=== PATIENT | male | born 1950 | race Caucasian/White ===

== ENCOUNTER 2021-05-03 16:05 | Emergency (ER) | payer OTHER, MEDICARE, SELFPAY ==
--- NOTE | ~2021-05-03 | XR_ITS ---
XR elbow RT min 3V DATE: 05/03/2021 16:37 INDICATION: Pain and swelling, erythema and posterior elbow for 3 days. No injury. TECHNIQUE: 4 views COMPARISON: None FINDINGS: There is soft tissue swelling at the dorsum of the elbow overlying a prominent olecranon pr ocess spur. There is osteoarthritic change the elbow joint. There is some chronic ossicles along the medial aspec t of the distal humerus and proximal ulna. No fracture or dislocation or joint effusion, periosteal reaction or bone destruction. IMPRESSION: Prominent olecranon process spur Dorsal soft tissue swelling suggesting olecranon bursitis Osteoarthritis Reviewed, dictated and finalized at location A.
[2021-05-03 16:13] VITALS: BP 146/63; PULSE 60; RESP 16; TEMP 36.5; O2SAT 100
--- NOTE | 2021-05-03 16:19 | ED.UPPEXIN ---
HPI - Extremity Injury (Upper) General Chief Complaint: Extremity Injury, Upper Stated Complaint: rt elbow swelling/pain Time Seen by Provider: 05/03/21 16:19 Source: patient, RN notes reviewed and old records reviewed Mode of arrival: ambulatory Limitations: no limitations History of Present Illness HPI narrative: 70 year old male who presents to [facility] care with complaints of 3 days of swelling, redness and pain to the right elbow olecranon area with warmth noted with increased pain over the past day. Patient states that he has noted 2 small scabbed areas on his right elbow and wonders if he might of gotten bit by something prior to start of pain swelling and redness of his right elbow. Patient states that he walks his dogs daily at [email or web address] and denies any known injury to his right elbow. Patient does state history of past weight lifting years ago. MD complaint: injury to: right and elbow Other Extremity Injury: Right: elbow Related Data Home Medications Medication Instructions Recorded Confirmed metoprolol succinate 50 mg 50 mg PO DAILY 08/19/19 04/13/20 tablet,extended release 24 hr aspirin 81 mg tablet,delayed 81 mg PO DAILY 04/13/20 04/13/20 release Allergies Allergy/AdvReac Type Severity Reaction Status Date / Time No Known Allergies Allergy Verified 04/13/20 11:20 Review of Systems Review of Systems: CONSTITUTIONAL: Denies fever, chills, or sweats. EYES: Denies visual changes, redness, or discharge. ENT: Denies rhinorrhea, congestion, sore throat, or otalgia. CARDIOVASCULAR: Denies chest pain, palpitations, or edema. RESPIRATORY: Denies cough or dyspnea. GASTROINTESTINAL: Denies abdominal pain, nausea, vomiting, or diarrhea. GENITOURINARY: Denies dysuria or hematuria. SKIN: Denies rash or itching. two small scabbed areas noted on right elbow, no drainage or induration MUSCULOSKELETAL: Denies back pain,positive for right elbow pain redness swelling and warmth, myalgia. NEUROLOGIC: Denies headache, numbness, or weakness. PSYCHIATRIC: Denies anxiety or depression. All systems reviewed & are unremarkable except as noted in HPI and below PMFSH Past Medical History Medical History (Updated 05/03/21 @ 17:42 by Nurys Aguiar NP) Chronic sinusitis, unspecified Diastasis of rectus abdominis Essential (primary) hypertension Mixed hyperlipidemia Obesity Skin cancer, upper extremity Surgical History Surgical History (Updated 05/03/21 @ 17:40 by Nurys Aguiar NP) History of open heart surgery History of repair of left rotator cuff History of repair of right rotator cuff Family History Family History (Updated 05/03/21 @ 17:41 by Nurys Aguiar NP) Mother Family history of cardiovascular disease Skin cancer Father Cerebrovascular accident Heart disease Skin cancer Grandparent Heart disease Other Family history of elevated blood lipids Social History Social History (Updated 05/03/21 @ 17:40 by Nurys Aguiar NP) Smoking status: Never smoker Second hand tobacco smoke exposure: No Alcohol intake: current Substance use: never Living arrangements: with family Occupation/Education: retired Gender identity (if verbalized by the patient): Male Comments At time of signature, agree with nursing past medical, surgical, social and family history. There is no relevant family history pertinent to the presenting complaint Exam Narrative: GENERAL: Well-appearing, well-nourished, and in no acute distress. HEAD: Normocephalic, atraumatic. EYES: PERRLA and EOMI. ENT: Nares clear, no rhinorrhea or epistaxis. Mucous membranes moist. NECK: Supple.no lymphadenopathy CHEST: Clear to auscultation. No respiratory distress.SAO2 100% on room air HEART: Regular rate and rhythm. No murmur heard. Normal peripheral pulses. ABDOMEN: Soft, nontender, nondistended, normal active bowel sounds. EXTREMITIES: Normal range of motion, edema redness, pain and warmth to right elbow
== END 2021-05-03 17:19 | disposition home or self-care (01) ==
PROVIDERS: Emergency Provider Registered Nurse; PCP Family Medicine
DX: M77.8 Other enthesopathies, not elsewhere classified (principal); M70.21 Olecranon bursitis, right elbow; I10 Essential (primary) hypertension; E78.2 Mixed hyperlipidemia; E66.9 Obesity, unspecified; Z68.31 Body mass index [BMI] 31.0-31.9, adult; Z85.828 Personal history of other malignant neoplasm of skin
CPT/HCPCS: 73080; 99213; G0463

== ENCOUNTER 2022-09-26 01:21 | Day surgery (SDC) | payer MEDICARE, OTHER, SELFPAY ==
[2022-09-13 15:42] VITALS: BMI 32.5
[2022-09-26 07:59] VITALS: BP 132/66; PULSE 71; RESP 18; TEMP 36.6; O2SAT 98
[2022-09-26] MEDS: LACTATED RINGERS 1,000 ML 150 ML IV CONT (08:07)
--- NOTE | 2022-09-26 08:14 | WPDANESEPPF ---
Anes - Initial Pre Proc Eval Procedure: Operation Date: 09/26/22 09:00 Proposed Procedures p Screening Colonoscopy - Flo Venegas MD Date/Time: 09/26/22 08:14 Surgeon: Flo Venegas MD Pre Op Diagnosis: neoplasm screening Patient Data Age: 71 Gender: M Height: 1.75 m Weight: 97.9 kg Last Vital Signs Temp 36.6 C 09/26/22 07:59 Pulse 71 09/26/22 07:59 Resp 18 09/26/22 07:59 BP 132/66 09/26/22 07:59 Pulse Ox 98 09/26/22 07:59 O2 Del Method Room Air 09/26/22 07:59 Allergies Allergy/AdvReac Type Severity Reaction Status Date / Time No Known Allergies Allergy Verified 09/26/22 07:56 Home Medications Medication Instructions Recorded Confirmed Type metoprolol succinate 50 mg 50 mg PO DAILY 08/19/19 09/13/22 History tablet,extended release 24 hr aspirin 81 mg tablet,delayed 81 mg PO DAILY 04/13/20 09/13/22 History release atorvastatin 40 mg tablet 40 mg PO DAILY #90 tabs 04/04/22 09/13/22 Rx ezetimibe 10 mg tablet (Zetia) 10 mg PO DAILY #90 tabs 07/25/22 09/13/22 Rx Adults Multivitamin 1 tab-cap PO DAILY 09/13/22 09/13/22 History coQ10 (ubiquinol) 200 mg capsule 200 mg PO Q12H 09/13/22 09/13/22 History glucosamine sulf dipotassium Cl 2 tablet PO DAILY 09/13/22 09/13/22 History 750 mg-chondroitin sulf 600 mg tablet (Glucosamine-Chondroitin 3X Triple Strength) omega 7-tgb-bbl-fish oil 1,000 mg 1 cap PO DAILY 09/13/22 09/13/22 History (120 mg-180 mg) capsule (Fish Oil) Patient hx anesthesia problems: none Family hx anesthesia problems: none Results Review: All pre-operative results and documents have been reviewed as part of the pre-operative evaluation. [facility] Past Medical History Medical History (Updated 09/26/22 @ 08:16 by Cuco Mandel MD) Atherosclerotic heart disease of [place] coronary artery with other forms of angina pectoris Chronic sinusitis, unspecified Diastasis of rectus abdominis Essential (primary) hypertension Mixed hyperlipidemia Obesity Obstructive sleep apnea (adult) (pediatric) Prostate cancer Skin cancer, upper extremity Surgical History Surgical History History of open heart surgery History of repair of left rotator cuff History of repair of right rotator cuff Family History Family History Mother Family history of cardiovascular disease Skin cancer Father Cerebrovascular accident Heart disease Skin cancer Grandparent Heart disease Other Family history of elevated blood lipids Social History Social History (Updated 08/11/22 @ 14:58 by Rosana Vang MA) Smoking status: Never smoker Second hand tobacco smoke exposure: No Alcohol intake: current Drinks per week: 3 Alcohol use details: BEERS Substance use: never Substance use type: does not use Lack of Transportation: No Lack of Food: Never True Current Housing: I Have Housing Concerned About Future Housing: No Difficulty Paying Gas/Electric Bills: No Difficulty Paying for Meds: No Currently Unemployed: No Education: Master's Degree or Higher Difficulty w/ Childcare or Family Care: No Living arrangements: with family Occupation/Education: retired Gender identity (if verbalized by the patient): Male Spiritual care concerns: No Anes - Eval Final PreProcedure Day of Procedure 09/26/22 08:14 Patient weight: obese Heart: regular rate and rhythm Lungs: clear to auscultation and normal air movement Airway: Mallampati scale class II Neurological: alert and oriented Last oral intake: >/= 8 hours ASA classification: III Emergent: no Anesthetic plan: proceed Anesthesia type and monitoring: general GIVS Results Review: All pre-operative results and documents have been reviewed as part of the pre-operative evaluation. Informed Consent: The patient's anesthetic plan and its attendant risks an
--- NOTE | 2022-09-26 08:45 | PM.HPGS ---
History of Present Illness History of Present Illness Consent: Risks, benefits, and alternatives have been discussed and questions answered. Patient agrees to proceed with procedure. Chief complaint: neoplasm screening Narrative: Joseph Vallejo is a 71 year old male Presents for screening colonoscopy. Patient's current weight appetite and bowel movements are normal. Patient denies abdominal pain. He has had no bleeding. Patient family history is noncontributory. Patient does have a history of adenomatous colon polyp removed from the colon in 2017. Patient presents today for screening colonoscopy. Review of Systems Review of Systems: Review of systems noncontributory. [facility] Past Medical History Medical History (Updated 09/26/22 @ 08:16 by Cuco Mandel MD) Atherosclerotic heart disease of [place] coronary artery with other forms of angina pectoris Chronic sinusitis, unspecified Diastasis of rectus abdominis Essential (primary) hypertension Mixed hyperlipidemia Obesity Obstructive sleep apnea (adult) (pediatric) Prostate cancer Skin cancer, upper extremity Surgical History Surgical History History of open heart surgery History of repair of left rotator cuff History of repair of right rotator cuff Family History Family History Mother Family history of cardiovascular disease Skin cancer Father Cerebrovascular accident Heart disease Skin cancer Grandparent Heart disease Other Family history of elevated blood lipids Social History Social History (Updated 08/11/22 @ 14:58 by Rosana Vang MA) Smoking status: Never smoker Second hand tobacco smoke exposure: No Alcohol intake: current Drinks per week: 3 Alcohol use details: BEERS Substance use: never Substance use type: does not use Lack of Transportation: No Lack of Food: Never True Current Housing: I Have Housing Concerned About Future Housing: No Difficulty Paying Gas/Electric Bills: No Difficulty Paying for Meds: No Currently Unemployed: No Education: Master's Degree or Higher Difficulty w/ Childcare or Family Care: No Living arrangements: with family Occupation/Education: retired Gender identity (if verbalized by the patient): Male Spiritual care concerns: No Meds Home Medications and Allergies Home Medications Medication Instructions Recorded Confirmed Type metoprolol succinate 50 mg 50 mg PO DAILY 08/19/19 09/13/22 History tablet,extended release 24 hr aspirin 81 mg tablet,delayed 81 mg PO DAILY 04/13/20 09/13/22 History release atorvastatin 40 mg tablet 40 mg PO DAILY #90 tabs 04/04/22 09/13/22 Rx ezetimibe 10 mg tablet (Zetia) 10 mg PO DAILY #90 tabs 07/25/22 09/13/22 Rx Adults Multivitamin 1 tab-cap PO DAILY 09/13/22 09/13/22 History coQ10 (ubiquinol) 200 mg capsule 200 mg PO Q12H 09/13/22 09/13/22 History glucosamine sulf dipotassium Cl 2 tablet PO DAILY 09/13/22 09/13/22 History 750 mg-chondroitin sulf 600 mg tablet (Glucosamine-Chondroitin 3X Triple Strength) omega 9-rhy-ovb-fish oil 1,000 mg 1 cap PO DAILY 09/13/22 09/13/22 History (120 mg-180 mg) capsule (Fish Oil) Allergies Allergy/AdvReac Type Severity Reaction Status Date / Time No Known Allergies Allergy Verified 09/26/22 07:56 Vital Signs Vital Signs - 24 hr 09/26/22 07:59 Temperature 98 F Pulse Rate 71 Respiratory Rate 18 Blood Pressure 132/66 Pulse Oximetry 98 Oxygen Delivery Room Air Exam Narrative: Physical exam reveals patient to be alert. Vital signs stable. HEENT exam is unremarkable. Patient is anicteric. Lungs are clear to auscultation and percussion. Heart is without murmur or extra sounds. Abdomen bowel sounds are present soft nontender with no organomegaly. Digital external rectal exam is normal. Assessment and Plan Assessment and plan
[2022-09-26 09:16] VITALS: BP 101/54; PULSE 63; RESP 18; O2SAT 96
[2022-09-26 09:26] VITALS: BP 92/56; PULSE 64; RESP 18; O2SAT 96
[2022-09-26 09:36] VITALS: BP 100/66; PULSE 61; RESP 22; O2SAT 98
== END 2022-09-26 09:50 | disposition home or self-care (01) ==
PROVIDERS: PCP Family Medicine; Visit Provider Internal Medicine Gastroenterology
PROC: 0DJD8ZZ Inspection of Lower Intestinal Tract, Via Natural or Artificial Opening Endoscopic (ICD-10-PCS; CPT 45378; principal; 2022-09-26 09:00)
DX: Z12.11 Encounter for screening for malignant neoplasm of colon (principal); K64.8 Other hemorrhoids; K57.30 Diverticulosis of large intestine without perforation or abscess without bleeding; Z86.010 Personal history of colon polyps; I25.118 Atherosclerotic heart disease of native coronary artery with other forms of angina pectoris; I10 Essential (primary) hypertension; E78.2 Mixed hyperlipidemia; G47.33 Obstructive sleep apnea (adult) (pediatric); Z85.46 Personal history of malignant neoplasm of prostate; E66.9 Obesity, unspecified; Z68.31 Body mass index [BMI] 31.0-31.9, adult; Z79.82 Long term (current) use of aspirin
CPT/HCPCS: G0105; J2704; J7120

== ENCOUNTER 2025-06-05 12:32 | Outpatient (CLI) | payer MEDICARE, SELFPAY ==
[2025-06-05 14:23] LABS: Hematocrit 47.0 % (42.0-52.0); Hemoglobin 15.4 g/dL (14.0-18.0); Immature Granulocyte Percent A 0.3 % (0-0.5); Lymphocytes Absolute Auto 2.40 K/mm3 (0.9-3.2); Mean Corpuscular HGB Conc 32.8 g/dl (32-36); Mean Corpuscular Hemoglobin 31.6 pg (26-34); Mean Corpuscular Volume 96.3 fl (80-100); Nucleated Red Blood Cells Absolute Auto 0.000 K/mm3 (0.0-0.012); Nucleated Red Blood Cells Perc 0.0 % (0.0-0.2); Platelet Count Result 177 k/mm3 (150-375); Red Blood Count 4.88 M/mm3 (4.6-6.20); White Blood Count 7.3 K/mm3 (4.5-10.0)
[2025-06-05 14:37] LABS: Alanine Aminotransferase 42 U/L (6-50); Albumin Level 4.0 g/dL (3.5-5.1); Alkaline Phosphatase 56 U/L (38-126); Anion Gap 1 mmol/L (4-12); Aspartate Amino Transferase 76 U/L (17-59); Bilirubin,Total 0.7 mg/dL (0.2-1.3); Blood Urea Nitrogen 20 mg/dL (9-20); Calcium 9.1 mg/dL (8.4-10.2); Carbon Dioxide 30 mmol/L (22-30); Chloride 105 mmol/L (98-107); Cholesterol 130 mg/dL (0-200); Estimated Glomerular Filt Rate 46; Glucose 85 mg/dL (65-110); HDL Direct 46 mg/dL; Potassium 4.6 mmol/L (3.4-5.0); Sodium 136 mmol/L (137-145); Total Protein 7.2 g/dL (6.3-8.2); Triglycerides 95 mg/dL (<150)
[2025-06-05 15:13] LABS: Thyroid Stimulating Hormone 2.700 uIU/mL (0.465-4.680)
== END 2025-06-05 12:33 | disposition home or self-care (01) ==
LOC: ANHGOSHLAB 12:34
PROVIDERS: PCP Family Medicine; Visit Provider Nurse Practitioner Family
DX: G47.33 Obstructive sleep apnea (adult) (pediatric) (principal); I10 Essential (primary) hypertension; E78.2 Mixed hyperlipidemia; E66.9 Obesity, unspecified; Z11.59 Encounter for screening for other viral diseases
CPT/HCPCS: 36415; 80053; 80061; 84443; 85025; 86803